=== PATIENT | female | born 1980 | race Caucasian/White ===

== ENCOUNTER → 2017-09-02 14:56 | Outpatient (CLI) | payer SELFPAY ==
--- NOTE | 2017-09-02 | NVE_ITS ---
Venous Exam Indications: 729.5 Pain in limb. IMPRESSIONS No evidence of deep or superficial vein thrombosis involving the left lower extremity History: Left lower extremity pain. Edema of the left leg. Risk factors: Hypertension. Post- X 9 weeks. Left lower extremity venous duplex evaluation. Doppler flow study including spectral analysis, color and fountain scale imaging. Patient status: Outpatient. Tables: Venous flow and imaging: + +-------+ + Location Overall Flow properties + +-------+ + Left common femoral Patent Normal phasicity; spontaneous; normal augmentation; compressible + +-------+ + Left saphenofemoral junction Patent Compressible + +-------+ + Left profunda femoral Patent Compressible + +-------+ + Left femoral Patent Normal phasicity; spontaneous; normal augmentation; compressible + +-------+ + Left greater saphenous Patent Normal phasicity; spontaneous; normal augmentation; compressible + +-------+ + Left popliteal Patent Normal phasicity; spontaneous; normal augmentation; compressible + +-------+ + Left posterior tibial Patent Compressible + +-------+ + Left peroneal Patent Compressible + +-------+ + Left gastrocnemius Patent Compressible + +-------+ + Left soleal Patent Compressible + +-------+ + (Report amended ) Electronically signed by: All King [id number]
== END ==
PROVIDERS: PCP Nurse Practitioner Family; Visit Provider Nurse Practitioner Family
DX: M79.662 Pain in left lower leg (principal)
CPT/HCPCS: 93971

== ENCOUNTER → 2018-12-26 11:09 | Outpatient (CLI) | payer SELFPAY ==
[2018-12-26 12:27] LABS: Basophils # 0.1 K/mm3 (0-0.2); Basophils % 0.5 % (0.1-2.0); Eosinophils # 0.1 K/mm3 (0.0-0.4); Eosinophils % 0.6 % (0.1-12.0); Hematocrit 38.7 % (37.0-47.0); Hemoglobin 12.8 g/dL (12.2-16.2); Lymphocytes # 2.4 K/mm3 (0.7-4.5); Mean Corpuscular HGB Conc 33.1 g/dL (31.8-35.4); Mean Corpuscular Volume 81.3 fl (81-99); Mean Platelet Volume 7.1 fl (7.4-10.4); Monocytes # 0.4 K/mm3 (0.1-1.0); Monocytes % 4.4 % (1.7-9.3); Neutrophils # 6.7 K/mm3 (1.8-7.8); Neutrophils % 69.4 % (37.0-80.0); Platelet Count 330 K/mm3 (142-424); Red Blood Count 4.75 M/mm3 (4.20-5.40); Red Cell Distribution Width 13.1 % (11.5-17.5); White Blood Count 9.6 K/mm3 (4.8-10.8)
[2018-12-26 12:44] LABS: Hemoglobin A1C 5.9 % (0.0-7.0)
[2018-12-28 18:53] LABS: HIV Screen 4th Generation wRfx Non Reactive (Non Reactive); Rubella Antibodies, IgG 7.13 index (Immune >0.99)
[2018-12-30 07:26] LABS: Hepatitis B Surface Antigen Negative (Negative); Hepatitis C Antibody 0.1 s/co ratio (0.0-0.9)
[2018-12-30 14:29] LABS: Rapid Plasma Reagin Ab Titer Non Reactive (NonRea<1:1)
== END ==
PROVIDERS: Nurse Practitioner Obstetrics & Gynecology; Visit Provider Nurse Practitioner Family
DX: Z34.90 Encounter for supervision of normal pregnancy, unspecified, unspecified trimester (principal); R73.01 Impaired fasting glucose
CPT/HCPCS: 36415; 83036; 85025; 86592; 86703; 86762; 86850; 87340; 87380; G0432

== ENCOUNTER 2019-04-12 11:45 | Outpatient (CLI) | payer SELFPAY ==
[2019-04-12 13:28] VITALS: BP 143/91; PULSE 109; RESP 20; TEMP 36.7; O2SAT 99
[2019-04-12 13:45] VITALS: BP 128/77; PULSE 103; RESP 20; O2SAT 99
== END 2019-04-12 13:45 | disposition home or self-care (01) ==
PROVIDERS: Visit Provider Nurse Practitioner Obstetrics & Gynecology
DX: Z34.90 Encounter for supervision of normal pregnancy, unspecified, unspecified trimester (principal)
CPT/HCPCS: 36415; 96372; J2790

== ENCOUNTER → 2019-06-08 17:25 | Outpatient (CLI) | payer SELFPAY | PROVIDERS: Visit Provider Nurse Practitioner Obstetrics & Gynecology | DX: Z34.90 Encounter for supervision of normal pregnancy, unspecified, unspecified trimester (principal) | CPT/HCPCS: 86403 ==

== ENCOUNTER 2019-06-28 11:24 | Inpatient (IN) ==
[2019-06-28 11:47] LABS: Microscopic, Urine URINE MICROSCOPIC (MICROSCOPIC)
[2019-06-28 11:48] LABS: Appearance,Urine CLEAR (Clear); Bilirubin,Urine Negative (Negative); Blood, Urine Negative (Negative); Color,Urine YELLOW (Yellow); Glucose,Urine (UA) Negative (Negative); Ketones,Urine Negative (Negative); Leukocyte Esterase,Urine 3+ (Negative); PH,Urine 7.5 (5.0-8.5); Protein,Urine Negative (Negative); Urobilinogen,Urine 0.2 EU/dl (0.2)
[2019-06-28 11:57] LABS: Bacteria,Urine Trace /lpf
[2019-06-28 11:59] LABS: Barbiturates Screen,Urine Negative ng/ml (<200)
[2019-06-28 12:00] LABS: Benzodiazepines Screen,Urine Negative ng/ml (<200)
[2019-06-28 12:01] LABS: Amphetamine/Metha Screen,Urine Negative ng/ml (<1000); Methadone Screen,Urine Negative ng/ml (<300)
[2019-06-28 12:02] LABS: Cannabinoid Screen,Urine Negative ng/ml (<50)
[2019-06-28 12:03] LABS: Cocaine Screen,Urine Negative ng/ml (<300); Opiate Screen,Urine Negative ng/ml (<300)
[2019-06-28 12:04] LABS: Phencyclidine Screen,Urine Negative ng/ml (<25)
[2019-06-28 15:03] LABS: Basophils % 0.4 % (0.1-2.0); Eosinophils % 0.4 % (0.1-12.0); Hematocrit 33.4 % (37.0-47.0); Lymphocytes # 1.8 K/mm3 (0.7-4.5); Lymphocytes % 19.1 % (10-50); Mean Corpuscular HGB Conc 33.1 g/dL (31.8-35.4); Mean Corpuscular Volume 79.5 fl (81-99); Monocytes # 0.4 K/mm3 (0.1-1.0); Neutrophils # 7.2 K/mm3 (1.8-7.8); Neutrophils % 76.1 % (37.0-80.0); Platelet Count 230 K/mm3 (142-424); Red Blood Count 4.19 M/mm3 (4.20-5.40); Red Cell Distribution Width 13.9 % (11.5-17.5); White Blood Count 9.4 K/mm3 (4.8-10.8)
[2019-06-28 16:36] LABS: Lymphocytes % 23 % (10-50); Monocytes % 3 % (2-9); Neutrophils % 74 % (42-76); RBC Morphology Normal; Total Cells Counted 100
--- NOTE | 2019-06-28 17:31 | History & Physical Report ---
OB - H&P: HPI Antepartum - History of Present Illness Chief complaint: Gestational hypertension, feeling unwell History of present illness: She is a 38-year-old 7 para 6 who says that she has been feeling unwell today. She took her blood pressure at home and it was 160/110. On arrival here her blood pressure was normal. She is having a few contractions. We had plan to induce her labor in 48 hours. She has been taking labetalol 200 mg twice daily. She has a history of increased blood pressure in . She also has a history of large for gestational age babies. Her last baby was over 10 pounds. - History of Present Criteria for establishing EDC:: based on LMP only care: good care Ultrasounds: normal mid trimester US Obstetrical complications: gestational hypertension Medical complications: none [facility] History I have reviewed the patient's past medical history: Yes *Have you ever received a pneumonia vaccine?: No *Have you received a flu vaccine this season?: No Other Surgeries: Yes: No Previous Surgery. No: Amputation: No Fractures: No - *Social History Smoking Status: Never smoker Alcohol Intake: never Substance Use Type: denies use *Occupational Status:: unemployed *Travel in the last 8 weeks: None Family Hx:: No significant family history Para: 5 Review of Systems - Review of Systems Review of systems:: pertinent systems reviewed and negative unless documented below Meds Home Medications Medication Instructions Recorded Confirmed Type prenat.vits,evette,cet-wbeq-crvay 1 tab PO DAILY 04/12/19 06/28/19 History labetalol 200 mg tablet 200 mg PO BID 06/22/19 06/28/19 History Allergies Allergy/AdvReac Type Severity Reaction Status Date / Time No Known Allergies Allergy Verified 06/22/19 10:43 OB - H&P: Exam - Physical Exam Vital signs: Temp Pulse Resp BP Pulse Ox 98.0 F 80 18 116/67 96 06/28/19 11:43 06/28/19 11:43 06/28/19 11:43 06/28/19 11:43 06/28/19 11:43 - Constitutional no acute distress - Routine HEENT Exam Head: Present: normocephalic Eye: Present: EOMI, PERRL ENT: Present: mucous membranes moist - Routine Neck Exam Present: supple, full ROM - Routine Respiratory Exam Absent: accessory muscle use (good air entry bilaterally), respiratory distress, wheezes, crackles - Routine Cardiovascular Exam Present: RRR. Absent: murmur - Routine Abdominal Exam Present: soft, normoactive bowel sounds. Absent: tenderness, distended, guarding - Routine Rectal Exam Patient deferred: visual exam, digital exam - Routine Exam Patient deferred: external exam, groin exam, perineal exam - Routine Extremities Exam Present: full ROM. Absent: cyanosis, edema - Routine Skin Exam Present: intact. Absent: cyanosis - Routine Neurological Exam Present: alert, oriented X3 - Routine Psychiatric Exam Present: normal affect OB - Results - Labs Labs: Short CBC 06/28/19 Range/Units 14:54 WBC 9.4 (4.8-10.8) K/mm3 Hgb 11.0 L (12.2-16.2) g/dL Hct 33.4 L (37.0-47.0) % Plt Count 230 (142-424) K/mm3 Urine 06/28/19 Range/Units 11:40 Urine Color Yellow (Yellow) Urine Appearance Clear (Clear) Urine pH 7.5 (5.0-8.5) Ur Specific Flom 1.010 (1.005-1.030) Urine Protein Negative (Negative) Urine Glucose (UA) Negative (Negative) OB - A/P Antepartum (1) Grand multiparity Current visit: Yes Status: Acute (2) Gestational hypertension Current visit: Yes Status: Acute (3) Large for gestational age fetus Current visit: Yes Status: Acute - Additional Plan Planning to breastfeed?: Yes Plan: induction Additional Information:: She is currently 38 weeks gestational age. She has gestational hypertension and is taking labetalol. She has been feeling unwell again. We will go ahead and deliver her tomorrow.
--- NOTE | 2019-06-29 08:12 | Progress Note ---
Labor Note - Subjective: Date: 06/29/19 Time: 08:11 regular contraction - Objective: NST:: Reactive Contractions:: every 2-3 minutes Cervical Dilation:: 2-3 Effacement:: 50% Station: -2 Membranes: artificially ruptured - Fetus: Monitoring?: Yes monitoring type:: External - Assessment: Labor progressing?: Yes Cephalopelvic disproportion?: No Patient Problems: All Active Problems Grand multiparity (Acute) Gestational hypertension (Acute) Large for gestational age fetus (Acute) (Acute) - Plan: Anesthesia for epidural?: No Continue to labor down?: Yes Plan for ?: No Continue to monitor?: Yes Start pushing?: No
[2019-06-29 12:05] VITALS: BP 130/82
--- NOTE | 2019-06-29 13:10 | Procedure Note ---
- Delivery Note Delivery Date:: 06/29/19 Delivery Time:: 12:28 Anesthesia Type: None Was labor medically induced?: Yes Induction method: per pitocin protocol Gestational age (weeks): 37 Infant delivered prior to 39 weeks?: Yes Justification for early elective delivery:: Gestational Diabetes, Gestational Hypertension Infant Gender: Male at 1 minute: 6 at 5 minutes: 7 Delivery Procedure:: She is a 38-year-old 7 para 5 aborta 1 who was 37 and 6 weeks gestational age. She has been followed with increased blood pressures and has been on labetalol 200 mg twice daily. She came in yesterday and was feeling quite unwell. Her blood pressures were normal but given the fact that she was 37+ weeks we elected to deliver her since she felt so unwell. She also has had gestational diabetes in the past and has had a 10 pound before. She was observed overnight and started on IV oxytocin. She had her membranes ruptured and progressed to full dilation. She rapidly went from 4 to 10 cm. She delivered spontaneously a liveborn male child. I was late for the delivery. On deliver the head there was a tight nuchal cord x2 and the nurse doubly clamped and cut the cord. This was followed by deliver the rest the infant's body atraumatically. The baby was then handed off to the nurses who assigned Apgars of 6 at 1 minute and 7 at 5 minutes. We then obtained cord blood as well as cord pH. The placenta then delivered spontaneously. She has O Rh- blood, she is rubella immune and was group B streptococcus negative. She plans to breast-feed. Her printing film stripper is Dr. Morris. Estimated blood loss was approximately 500 cc. There were no perineal or vaginal lacerations. Placental Delivery Description: Spontaneous
--- NOTE | 2019-06-29 17:57 | Discharge Summary ---
General - General Admission date:: 06/28/19 Discharge date: 06/29/19 HPI HPI: She is a 38-year-old 7 now para 6 aborta 1 who was 37 and 6 weeks gestational age. She has had increased blood pressure in the and was feeling unwell. She was admitted overnight. Her blood pressure was normal but she has also had gestational diabetes in the past. Since she was feeling unwell we elected to just go ahead and deliver her. She has been taking labetalol 200 mg twice daily for her blood pressure. Hospital Course Hospital Course: She was observed overnight and the following morning was started on IV oxytocin. She progressed to full dilation and delivered spontaneously a liveborn male child at 12:28 PM in the afternoon of June 29, 2019. Baby weighed 8 pounds 10 ounces and had Apgars of 6 at 1 minute and 7 at 5 minutes. There was a tight nuchal cord x2. She has done well and has remained afebrile throughout her hospitalization. She is eating and drinking and ambulating. She is breast-feeding. She has she has a Rh- blood and the baby was negative as well. She is rubella immune and was group B streptococcus negative. Her co founder and chief strategy officer Dr. Morris. Condition on discharge stable and improved. We will give her misoprostol to take over the next day to prevent hemorrhage. Her condition on discharge is stable and improved. Objective Vital signs: Temp Pulse Resp BP Pulse Ox 98.2 F 83 18 130/82 100 06/29/19 12:00 06/29/19 12:00 06/29/19 12:00 06/29/19 12:00 06/29/19 12:00 no acute distress - *Routine HEENT Exam Head: Present: normocephalic Eye: Present: EOMI, PERRL ENT: Present: mucous membranes moist Results Labs on day of discharge: Labs from last 24 hours 06/29/19 06/29/19 12:41 04:16 Cord ABG pH 7.40 POC Glucose 100 Preliminary micro results at discharge 06/28/19 11:40 Urine Culture - Preliminary Urine,Clean Catch DS: Diagnosis - Discharge Diagnosis (1) Grand multiparity Status: Acute (2) Gestational hypertension Status: Acute (3) Large for gestational age fetus Status: Acute Discharge Plan - Patient Discharge Instructions ACTIVITY: No heavy lifting DIET: continue same diet - Follow up Plan Disposition: Home, Self-Group Home Medications: Home Medications Medication Instructions Recorded Confirmed Type prenat.vits,evette,lol-fqpz-umkop 1 tab PO DAILY 04/12/19 06/28/19 History labetalol 200 mg tablet 200 mg PO BID 06/22/19 06/28/19 History miSOPROStoL [Cytotec 200mcg tablet] 0 mcg PO Q6H #6 tab 06/29/19 Rx Prescriptions/Medication Reconciliation: New miSOPROStoL [Cytotec 200mcg tablet] 0 mcg PO Q6H #6 tab Continued prenat.vits,evette,tti-yhkn-kocxl 1 tab PO DAILY labetalol 200 mg tablet 200 mg PO BID - Problem Reconciliation Problems Reviewed?: Yes
== END 2019-06-29 20:25 | disposition home or self-care (01) | DRG 807 ==
LOC: UTC.OUT 11:24 → OB 11:25
PROVIDERS: ADMIT Nurse Practitioner Obstetrics & Gynecology; ATTEND Nurse Practitioner Obstetrics & Gynecology